=== PATIENT | female | born 1970 | race Caucasian/White ===

== ENCOUNTER → 2019-12-22 14:15 | Outpatient (CLI) | payer BC, SELFPAY ==
--- NOTE | ~2019-12-22 | MR_ITS ---
EXAMINATION: MR lumbar spine wo con DATE: 12/22/2019 15:02 INDICATION: Low back pain. Left hip and leg pain. TECHNIQUE: Magnetic resonance imaging (MRI) of the lumbar spine was performed without intravenous con trast. Sequences included sagittal T2-weighted FSE, sagittal T2-weighted FS FSE, sagittal T1-weighted FSE, and axial T2-weighted FSE. COMPARISON: CT abdomen and pelvis 10/23/2015 FINDINGS: There are chronic bilateral L5 pars defects. There is 6 mm anterolisthesis of L5 on S1. Julio tebral body heights are normal. There is mildly decreased disc height at L5-S1. The distal spinal cor d signal intensity is normal. The conus medullaris is at T12. The following disc levels are specifica lly discussed: L1-L2: The disc does not extend beyond the endplate margin. There is mild bilateral facet joint osteo arthritis. There is no neural foraminal stenosis. There is no central canal stenosis. L2-L3: The disc does not extend beyond the endplate margin. There is mild bilateral facet joint osteo arthritis. There is no neural foraminal stenosis. There is no central canal stenosis. L3-L4: The disc is bulging and has an annular fissure. There is mild bilateral facet joint osteoarthr itis. There is no neural foraminal stenosis. There is mild central canal stenosis. L4-L5: The disc is bulging and has an annular fissure. There is mild bilateral facet joint osteoarthr itis. There is mild bilateral neural foraminal stenosis. There is mild central canal stenosis. L5-S1: The disc is bulging and has an annular fissure. There is no facet joint osteoarthritis. There is mild right neural foraminal stenosis. There is no central canal stenosis. IMPRESSION: 1. Chronic bilateral L5 pars defects with grade 2 anterolisthesis of L5 on S1. 2. Mild lumbar spondylosis. Reviewed, dictated and finalized at location A.
== END ==
PROVIDERS: PCP Internal Medicine; Visit Provider Internal Medicine
DX: M54.5 Low back pain (principal); M43.17 Spondylolisthesis, lumbosacral region; M47.816 Spondylosis without myelopathy or radiculopathy, lumbar region
CPT/HCPCS: 72148

== ENCOUNTER → 2020-07-16 16:03 | Outpatient (CLI) | payer BC, SELFPAY ==
--- NOTE | ~2020-07-16 | MM_ITS ---
EXAMINATION: MM screening vj BI w steffi HISTORY: Screening mammogram TECHNIQUE: Craniocaudal and mediolateral oblique 3-D tomosynthesis images were obtained and synthetic 2-D images were generated. CAD analysis was submitted and interpreted. COMPARISON: 06/03/2019, 04/18/2018, 04/12/2017 by lateral digital screening mammogram examinations BREAST PARENCHYMAL COMPOSITION: There are scattered areas of fibroglandular density. FINDINGS: There is no evidence of suspicious mass, calcification, or architectural distortion to sugg est malignancy in either breast. There has been no suspicious interval change. IMPRESSION: 1. No mammographic evidence of malignancy. 2. Recommend routine screening mammography in one year. BI-RADS Category 1: Negative Reviewed, dictated and finalized at location A. PM
== END ==
PROVIDERS: Visit Provider Nurse Practitioner
DX: Z12.31 Encounter for screening mammogram for malignant neoplasm of breast (principal)
CPT/HCPCS: 77063; 77067

== ENCOUNTER → 2020-12-11 17:40 | Outpatient (CLI) | payer BC, SELFPAY ==
--- NOTE | ~2020-12-11 | XR_ITS ---
XR foot LT min 3V 12/11/2020 19:01 Indication: Left foot pain Procedure: 3 views left foot Comparison: No prior studies for comparison. Findings: Mild osteoarthritis of the first and second MTP joint. Lisfranc joint intact. No fracture o r traumatic malalignment. No erosive changes. No focal soft tissue abnormality. No foreign bodies. 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 Reviewed, dictated and finalized at location A. 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
--- NOTE | ~2020-12-11 | XR_ITS ---
XR foot RT min 3V 12/11/2020 19:01 Indication: Bilateral foot pain Procedure: 3 views right foot Comparison: No prior studies for comparison. Findings: No fracture, subluxation or dislocation. There is mild osteoarthritis of the first MTP join t. Lisfranc joint is intact. No erosive changes. No significant soft tissue abnormality. No foreign b odies. Impression: 1: Mild osteoarthritis of the first MTP joint. Reviewed, dictated and finalized at location A. Impression: 1: Mild osteoarthritis of the first MTP joint.
== END ==
PROVIDERS: Visit Provider Podiatrist Foot & Ankle Surgery
DX: M19.072 Primary osteoarthritis, left ankle and foot (principal); M19.071 Primary osteoarthritis, right ankle and foot
CPT/HCPCS: 73630

== ENCOUNTER → 2021-05-14 13:53 | Outpatient (CLI) | payer BC, SELFPAY ==
--- NOTE | ~2021-05-14 | MR_ITS ---
EXAMINATION: MR lumbar spine wo con DATE: 05/14/2021 14:40 INDICATION: Left-sided sciatica. TECHNIQUE: Magnetic resonance imaging (MRI) of the lumbar spine was performed without intravenous con trast. Sequences included sagittal T2-weighted FSE, sagittal T2-weighted FS FSE, sagittal T1-weighted FSE, and axial T2-weighted FSE. COMPARISON: Lumbar spine MRI 12/22/2019 FINDINGS: There is 5 degrees dextrocurvature of lumbar spine. There are chronic bilateral L5 pars def ects. There is 7 mm anterolisthesis of L5 on S1. Vertebral body heights are normal. There is moderate ly decreased disc height at L5-S1 with endplate remodeling. The distal spinal cord signal intensity i s normal. The conus medullaris is at T12-L1. The following disc levels are specifically discussed: L1-L2: The disc does not extend beyond the endplate margin. There is mild bilateral facet joint osteo arthritis. There is no neural foraminal stenosis. There is no central canal stenosis. L2-L3: The disc is mildly bulging. There is severe bilateral facet joint osteoarthritis. There is mil d bilateral neural foraminal stenosis. There is no central canal stenosis. L3-L4: The disc is bulging and has an annular fissure. There is severe bilateral facet joint osteoart hritis. There is mild bilateral neural foraminal stenosis. There is mild central canal stenosis. L4-L5: The disc is bulging and has an annular fissure. There is moderate bilateral facet joint osteoa rthritis. There is mild bilateral neural foraminal stenosis. There is mild central canal stenosis. L5-S1: The disc is bulging and has an annular fissure. There is mild bilateral facet joint osteoarthr itis. There is mild right neural foraminal stenosis. There is no central canal stenosis. IMPRESSION: 1. Moderate lumbar spondylosis, stable from 12/22/2019. 2. Chronic bilateral L5 pars defects with stable grade 2 anterolisthesis of L5 on S1. Reviewed, dictated and finalized at location A. NDANCE CLERK
== END ==
PROVIDERS: PCP Internal Medicine
DX: M54.32 Sciatica, left side (principal); M47.817 Spondylosis without myelopathy or radiculopathy, lumbosacral region; M48.07 Spinal stenosis, lumbosacral region
CPT/HCPCS: 72148

== ENCOUNTER → 2021-08-06 16:19 | Outpatient (CLI) | payer BC, SELFPAY ==
--- NOTE | ~2021-08-06 | XR_ITS ---
XR lumbar spine 6V w bending 08/06/2021 17:01 Indication: Low back pain Procedure: 7 views of the lumbar spine including flexion/extension views. Comparison: 02/18/2017 Findings: There is grade 2 spondylolisthesis at L5-S1 secondary to spondylolysis. There is disc narro wing at all lumbar levels. There is facet hypertrophy of the mid and lower lumbar spine. No acute fra cture, luxation or dislocation. There is atherosclerosis of the aorta. There are cholecystectomy clip s. Impression: 1: Moderate lumbar spondylosis with grade 2 spondylolisthesis at L5-S1 secondary to spondylolysis. Reviewed, dictated and finalized at location A. HAND TUNA BOAT Impression: 1: Moderate lumbar spondylosis with grade 2 spondylolisthesis at L5-S1 secondar y to spondylolysis.
== END ==
PROVIDERS: PCP Internal Medicine
DX: M43.16 Spondylolisthesis, lumbar region (principal); M47.816 Spondylosis without myelopathy or radiculopathy, lumbar region
CPT/HCPCS: 72114

== ENCOUNTER → 2021-09-01 16:27 | Outpatient (CLI) | payer BC, SELFPAY ==
--- NOTE | ~2021-09-01 | XR_ITS ---
XR_CERV2-3V_CR DATE: 09/01/2021 16:51 INDICATION: Neck pain TECHNIQUE: AP, open-mouth, lateral and swimmer views COMPARISON: None FINDINGS: There is straightening of the cervical spine which may be due to muscle spasm. There is mil d levoscoliosis of the cervical and upper thoracic spine. C1 and C2 are normally aligned and the odontoid process is intact. No fracture or dislocation, locked facet or prevertebral soft tissue swelling. Cervical interspaces are relatively preserved. Bilateral calcifications in the region of the carotid bulbs, proximal internal carotid arteries. IMPRESSION: Straightening and mild levoscoliosis Reviewed, dictated and finalized at Location A. Reviewed, dictated and finalized at location A.
== END ==
PROVIDERS: Visit Provider Internal Medicine
DX: M54.2 Cervicalgia (principal); M41.9 Scoliosis, unspecified
CPT/HCPCS: 72040

== ENCOUNTER → 2021-09-29 08:52 | Outpatient (CLI) | payer BC, SELFPAY ==
--- NOTE | ~2021-09-29 | CT_ITS ---
EXAMINATION: CT brain wo/w con DATE: 09/29/2021 09:21 INDICATION: Headache. TECHNIQUE: Computed tomography (CT) of the head was performed without and with 100 mL Omnipaque 350 i ntravenous contrast. The mA was adjusted according to patient size. Iterative reconstruction techniqu e was employed. The dose-length product was 1049.24 mGy-cm. COMPARISON: Head CT 11/12/2015 FINDINGS: There is no intracranial hemorrhage, acute infarction, or abnormal intracranial mass lesion . The ventricles are normal in size. The orbits are normal. There is mild mucosal thickening in the p aranasal sinuses. The mastoid air cells are normal. IMPRESSION: 1. Normal brain. Reviewed, dictated and finalized at location A. IMPRESSION: 1. Normal brain.
[2021-09-29 09:10] LABS: Estimated Glomerular Filt Rate > 60
== END ==
PROVIDERS: PCP Internal Medicine; Visit Provider Internal Medicine
DX: R51.9 Headache, unspecified (principal)
CPT/HCPCS: 70470; Q9967

== ENCOUNTER → 2021-10-29 13:57 | Outpatient (CLI) | payer BC, SELFPAY ==
--- NOTE | ~2021-10-29 | MM_ITS ---
EXAMINATION: MM screening vj BI w steffi HISTORY: Screening mammogram TECHNIQUE: Craniocaudal and mediolateral oblique 3-D tomosynthesis images were obtained and synthetic 2-D images were generated. CAD analysis was submitted and interpreted. COMPARISON: 07/16/2020 bilateral screening mammogram 05/29/2019 bilateral diagnostic mammogram 04/18/2018 bilateral screening mammogram BREAST PARENCHYMAL COMPOSITION: There are scattered areas of fibroglandular density. FINDINGS: There is no evidence of suspicious mass, calcification, or architectural distortion to sugg est malignancy in either breast. There has been no suspicious interval change. IMPRESSION: 1. No mammographic evidence of malignancy. 2. Recommend routine screening mammography in one year. BI-RADS Category 1: Negative Reviewed, dictated and finalized at location A.
--- NOTE | ~2021-10-29 | DEXA_ITS ---
Bone Density Report Name: DENVER HOLT Age: 51 Sex: Female Ethnicity: White Date of : 1970 Indication: postmenopausal; screening for osteoporosis; height loss; Referring Provider: ADRIAN, CHUCKIE Study: Bone densitometry was performed. Exam Date: October 29, 2021 Accession number: [id number] Bone Density: Region BMD T-score Z-score Classification AP Spine (L1-L4) 0.990 -0.5 0.3 Normal Femoral Neck (Left) 0.757 -0.8 0.0 Normal Total Hip (Left) 0.960 0.1 0.6 Normal Femoral Neck (Right) 0.756 -0.8 0.0 Normal Total Hip (Right) 0.942 0.0 0.5 Normal Total Hip Mean 0.951 0.1 0.6 Normal World Health Organization criteria for BMD impression classify patients as: Normal (T-score at or above -1.0), Osteopenia (T-score between -1.0 and -2.5), or Osteoporosis (T-score at or below -2.5). 10-year Fracture Risk: FRAX not reported because: All T-scores for Spine Total, Hip Total, Femoral Neck at or above -1.0 Clinical Information Provided by Patient: Has used the following medications: Vitamin D Patient maximum height was 59 Drinks caffeinated beverages Onset of menses at age 12 Number of children 0 Impression: The patient has normal bone mass. Discussion: BONE DENSITY IS ABOVE THE MINIMUM DESIRABLE LEVEL AT ALL SKELETAL SITES TESTED. This patient?s bone mineral density is above the minimum desirable level (T-score -1.0 or better) at all sites measured. The patient should follow a healthful lifestyle (good nutrition with adequate calcium and vitamin D, and appropriate weight-bearing exercise). Follow-Up: Consider repeating this study in 5 years or sooner if there is some new clinical indication. Reported by: SHANNON on 10/29/2021 2:30:00 PM. Reviewed, dictated and finalized at location AVita HOWARD
== END ==
PROVIDERS: PCP Internal Medicine; Visit Provider Nurse Practitioner
DX: Z12.31 Encounter for screening mammogram for malignant neoplasm of breast (principal); Z78.0 Asymptomatic menopausal state
CPT/HCPCS: 77063; 77067; 77080

== ENCOUNTER → 2022-05-11 14:32 | Outpatient (CLI) | payer BC, SELFPAY ==
--- NOTE | ~2022-05-11 | CT_ITS ---
EXAMINATION: CT lung screening DATE: 05/11/2022 14:44 INDICATION: Personal history of nicotine dependence TECHNIQUE: Computed tomography (CT) of the chest was performed without intravenous contrast. The dose -length product was 113.12 mGy-cm. Automated exposure control and iterative reconstruction technique were employed. COMPARISON: None FINDINGS: Heart size is normal. No thoracic lymphadenopathy. No significant pleural or pericardial ef fusion. There is atherosclerosis. The upper abdomen is unremarkable. No endobronchial lesions. No pne umothorax. No focal airspace consolidation. Mild emphysema. No suspicious pulmonary nodules. Mild tho racic spondylosis. No focal lytic or blastic lesions. IMPRESSION: 1. Lung-RADS category 1: Negative. Continue annual screening with noncontrast low-dose chest CT in 12 months. Reviewed, dictated and finalized at location A. L FOOD SERVICE SUPERVISOR IMPRESSION: 1. Lung-RADS category 1: Negative. Continue annual screening with noncontrast l ow-dose chest CT in 12 months.
== END ==
PROVIDERS: PCP Internal Medicine; Visit Provider Internal Medicine
DX: Z12.2 Encounter for screening for malignant neoplasm of respiratory organs (principal); Z87.891 Personal history of nicotine dependence
CPT/HCPCS: 71271

== ENCOUNTER 2025-06-04 14:13 | Emergency (ER) | payer OTHER, SELFPAY ==
--- NOTE | ~2025-06-04 | XR_ITS ---
EXAMINATION: XR chest 2V 06/04/2025 14:49 INDICATION: Cough for 5 days PROCEDURE: 2 view chest COMPARISON: No prior studies for comparison. FINDINGS: The lungs are clear. The cardiomediastinal silhouette is within normal limits. There are no pleural effusions. There is no pneumothorax suspected. IMPRESSION: 1: NO ACUTE CARDIOPULMONARY DISEASE. Reviewed, dictated and finalized at location O. HANDISING DIRECTOR
--- NOTE | 2025-06-04 14:32 | ED_ITS ---
HPI - URI/Sore Throat General Chief Complaint: Upper Respiratory Infection Stated Complaint: uri syptoms Source: patient, RN notes reviewed and old records reviewed Mode of arrival: ambulatory Limitations: no limitations History of Present Illness HPI Narrative: 54-year-old female presents to the [facility] with complaints of URI symptoms since May 30, 5 days. Patient reports sore throat, cough, headache, sinus congestion. Has taken [id number]-[id number] sinus medications. Denies fevers, chest pain, shortness of breath. Related Data Home Medications ?Medication ?Instructions ?Recorded ?Confirmed ?Last Taken ?Type amitriptyline 10 mg tablet mg 06/04/25 Unknown Histor y atorvastatin 10 mg tablet mg 06/04/25 Unknown History glimepiride 1 mg tablet mg 06/04/25 Unknown History immodium 06/04/25 Unknown History losartan 50 mg tablet mg 06/04/25 Unknown History metformin 500 mg tablet,extended mg PO 06/04/25 Unkno wn History release 24 hr omeprazole 20 mg capsule,delayed mg 06/04/25 Unknown History release Allergies Allergy/AdvReac Type Severity Reaction Status Date / Time No Known Allergies Allergy Verified 06/04/25 14:15 Review of Systems Review of Systems: All systems reviewed & are unremarkable except as noted in HPI and below Constitutional: Constitutional: Reports as per HPI and Reports headache(s) ENT: Reports as per HPI and Reports sore throat Cardiovascular: Cardiovascular: Reports no additional cardiovascular complaints, Denies chest pain and Denies dyspnea Respiratory: Respiratory: Reports as per HPI, Denies chest congestion, Reports cough and Denies dyspnea Musculoskeletal: Musculoskeletal: Reports no additional musculoskeletal complaints Integumentary/Breasts: Skin/Breast: Reports system reviewed and no additional complaints, except as docu PMFSH Comments At the time of my signature, I reviewed and agree with the nursing past medical, surgical, social, and family history. There is no relevant family history pertinent to the patient complaint. Exam Const: General: cooperative, healthy appearing, comfortable, no acute distress, well developed, alert and well nourished Nutritional Appearance: well nourished Orientation/consciousness: patient oriented x3 Limitations: no limitations HENMT: Head: normal to inspection Ears: hearing grossly normal bilaterally, external ears normal, TM's normal bilaterally, EAC's normal, mastoids normal and no periauricular adenopathy Mouth: Yes Normal oral and palatal mucosa present, Yes lip normal, Yes tongue normal and Yes moist mucous membranes Throat: posterior oropharynx normal, uvula midline and no uvular edema Eyes: General: appearance normal, both eyes and all related structures Alignment and Position: alignment normal Neck: Neck: normal visual inspection, full ROM, no lymphadenopathy and no meningeal signs Chest: Chest palpation & inspection: normal inspection of the chest Resp: Effort & Inspection: normal respiratory effort and able to speak in complete sentences Auscultation: no crackles, no rales, no rhonchi, no wheezes and other (Coarse lung sounds left lower, left mid) Cardio: Rate: regular rate Skin: General skin exam: normal color and no rashes or lesions noted Neuro: General: patient oriented x3, gait normal, moves all extremities and no meningeal signs Cognition (Neuro): normal cognition Speech: normal speech Gait exam (Neuro): Normal gait present Extrem: General: normal to inspection, full ROM, capillary refill normal and normal gait Psych: Appearance: grossly normal and well kempt Mental Status: mental status grossly normal Speech and movement: Normal speech and movement present and Clear speech present Affect: normal affect Attitude: cooperative Course Course Level of Care: Express Care Visit Vital Signs Vital signs: Vital Signs Temperature 97.8 F 06/04/25 14:33 Pulse Rate 97 06/04/25 14:33 Respiratory Rate 16 06/04/25 14:33 Blood Pressure 133/71 06/04/25 14:33 Pulse Oximetry 99 06/04/25 14:33 Temperature 97.8 F 06/04/25 14:33 Pulse Rate 97 06/04/25 14:33 Respiratory Rate 16 06/04/25 14:33 Blood Pressure 133/71 06/04/25 14:33 Pulse Oximetry 99 06/04/25 14:33 reviewed MDM MDM Narrative Medical decision making narrative: Patient sitting in exam room. Patient is nontoxic, bite days of URI symptoms. Chest x-ray negative, flu COVID and strep were all negative. Patient with most likely viral bronchitis, will cover with inhaler, steroid. Patient is appropriate for outpatient treatment with close follow-up Discharge instructions reviewed with patient, as well as provided in writing per nursing staff. The instructions also include specific and strict return/GO TO THE ER as well as f/u information. All questions have been answered, and the patient deny any further questions with discharge and discharge plan. Some parts of this dictation were generated by voice recognition software and may contain typographical and/or grammatical inaccuracies. Differential Diagnosis Differential Diagnosis: Differential diagnostic considerations for upper respiratory infection include upper respiratory infection, croup, otitis media, sinusitis, viral infection, bronchitis, influenza, pharyngitis, strep, uvulitis.? Lab Data MDM Lab Attestation statement: I personally reviewed the patient's lab results. Labs: Lab Results 06/04/25 Range/Units 14:43 POC Influenza A Ag Negative (Negative) POC Influenza B Ag Negative (Negative) POC SARS CoV-2 Ag Negative (Negative) POC Grp A Strep Screen Negative (Negative) Reviewed Imaging Data Radiologist's impression: ITS Impressions Chest X-Ray 06/04/25 14:53 IMPRESSION: 1: NO ACUTE CARDIOPULMONARY DISEASE. Discharge Plan Discharge Clinical Impression: Bronchitis Patient Disposition: Home Condition: Stable Instructions: Antibiotic Form, Acute Bronchitis (ED) Additional Instructions: Your rapid strep swab was negative today at [facility]. A throat culture will be sent to the laboratory for further testing. If the test is positive, you will receive a phone call within 48 hours and an appropriate antibiotic will be initiated at that time. Your rapid COVID test were negative Your rapid flu test was negative Your x-ray did not show signs of pneumonia Your symptoms are likely due to a viral illness, which is not treated with antibiotics. Typically viral infections last 7-10 days, can linger for couple of weeks. It is very important to treat your symptoms. Drink plenty of water, Gatorade, Pedialyte, ice pops or Jell-O. -Alternate Tylenol and Motrin per package directions for fever or pain. You can alternate every 4 hours -Antihistamine medication such as Zyrtec/Claritin/Jenna during the day can help improve symptoms. -doing daily nasal irrigations can help relieve pressure your sinuses. Things like a Neti pot -Use Flonase twice a day for 5 days then daily to help reduce the inflammation and dry up your sinuses. -You can also use Mucinex. Be sure to drink plenty of water with this medication at least 8 ounces with every dose and it is important to drink 8 to 10 glasses of water per day. Water is a natural decongestant -Eat and drink things that are easy to swallow, like tea or soup, or popsicles. -Oral rinses such as: Salt water gargles and/or may use topical anesthetic (eg. Chloraseptic spray) or lozenges to relieve dryness or throat pain). -Frequent hand washing or hand cooler service supervisor is one of the best ways to prevent spread of infection. -Using a vaporizer or humidifier at night will also help thin secretions and help with coughing up phlegm. -Follow up with primary care provider in 7-10 days if condition is not improving - For new or worsening symptoms go directly to the nearest ER Patient Language: B[place] Prescriptions: New methylprednisolone [Medrol (Yonatan)] 4 mg tablets,dose pack See Rx Instructions PO .COMPLEX Qty: 21 0RF Rx Instructions: orally per package directions albuterol sulfate [Ventolin HFA] 90 mcg/actuation HFA aerosol inhaler 2 puff inhalation QID PRN (Reason: shortness of breath or wheezing) Qty: 6.7 0RF No Action losartan 50 mg tablet atorvastatin 10 mg tablet glimepiride 1 mg tablet amitriptyline 10 mg tablet omeprazole 20 mg capsule,delayed release(DR/EC) metformin 500 mg tablet extended release 24 hr PO immodium Follow-up/Referrals: Helen,Ned Power MD [Primary Care Provider, Unknown] Stand Alone Forms: Work/School Release IP Time of Disposition: 15:12
[2025-06-04 14:33] VITALS: BP 133/71; PULSE 97; RESP 16; TEMP 36.6; O2SAT 99
[2025-06-04 14:44] LABS: EDCOVIDSCREEN Negative (Negative); EDINFLUASCREEN Negative (Negative); EDINFLUBSCREEN Negative (Negative); EDSTREPNEGPOS1 Negative (Negative)
== END 2025-06-04 15:24 | disposition home or self-care (01) ==
PROVIDERS: Emergency Provider Nurse Practitioner; PCP Internal Medicine
DX: J40 Bronchitis, not specified as acute or chronic (principal); Z20.822 Contact with and (suspected) exposure to COVID-19
CPT/HCPCS: 71046; 87081; 87426; 87804; 87880; 99203; G0463